=== PATIENT | female | born 1965 | race Two or more races ===

== ENCOUNTER 2017-06-26 10:29 | Emergency (ER) | payer OTHER, MEDICAID ==
[~2017-06-26] VITALS: Ht 172.7 cm; Wt 59.0 kg
[~2017-06-26 10:29] MED LIST: CLINDAMYCIN HC300 MG ORAL; IBUPROFEN600 MG ORAL
[2017-06-26 10:56] VITALS: BP 119/72
--- NOTE | 2017-06-26 10:56 | Emergency Room Report ---
History of Present Illness General Chief Complaint: General Complaint Source: Patient Present Illness HPI Patient presents for removal of a right-sided chest wall strain Patient had breast implant removal on June 16 By specialty plastic surgeon Patient reports that she's not able to see her surgeon to Wednesday She felt that the area was uncomfortable, it was not allowing her to sleep She denies any swelling denies any discharge And presents with request of removal of the drain Allergies: Coded Allergies: No Known Allergies (Unverified , 11/28/15) Patient History Past Medical History: see triage record Pertinent Family History: none Last Menstrual Period: 2012 Reviewed Nursing Documentation: PMH: Agreed, PSxH: Agreed Nursing Documentation-PMH Past Medical History: No History, Except For Hx Cardiac Problems: No - Breast surgery Hx Hypertension: No Hx Pacemaker: No Hx Asthma: No Hx COPD: No Hx Diabetes: No Hx Cancer: No Hx Gastrointestinal Problems: No Hx Dialysis: No History Of Psychiatric Problem: No Hx Neurological Problems: No Hx Cerebrovascular Accident: No Hx Seizures: No Review of Systems All Other Systems: negative except mentioned in HPI Physical Exam Vital Signs Date Time Temp Pulse Resp B/P (MAP) Pulse Ox O2 Delivery O2 Flow Rate FiO2 06/26/17 10:35 97.9 68 16 167/93 100 Room Air Sp02 EP Interpretation: reviewed, normal General Appearance: well appearing, no apparent distress Head: normocephalic, atraumatic Eyes: bilateral eye PERRL, bilateral eye EOMI Musculoskeletal: normal inspection Neurologic: normal inspection, alert, oriented x3 Skin: other - Drain in place in the right side, just below the breast fold, the area appears to be sutured in, no obvious erythema or fluctuance, no obvious dehiscence Lymphatic: no adenopathy Medical Decision Making Diagnostic Impression: Primary Impression: wound check ER Course drain appears to be in place no obvious excoriation or erythema Unfortunately at this time I did not feel that there is any emergency pathology requiring removal of this apparatus This was placed by specialty plastic surgery And I feel the best option is to followup appropriately I discussed with the patient at usually most specialties to have someone associate consulting engineer for them and discussion with her specialist would be advised Last Vital Signs Date Time Temp Pulse Resp B/P (MAP) Pulse Ox O2 Delivery O2 Flow Rate FiO2 06/26/17 10:35 97.9 68 16 167/93 100 Room Air Status: unchanged Disposition: HOME, SELF-CARE Condition: Stable Patient Instructions: Wound Check Additional Instructions: Unfortunately at this time there is no obvious emergent pathology requiring removal of this drain. The emergency room recommends followup with your specialty surgeon for further investigation and possible earlier removal. SABINE WATERS D.O. Jun 26, 2017 10:55
== END 2017-06-26 10:56 | disposition home or self-care (01) ==
LOC: EMR 10:47
DX: Z48.03 Encounter for change or removal of drains (principal)
CPT/HCPCS: 99282

== ENCOUNTER 2018-03-07 10:20 | Emergency (ER) | payer MEDICAID, OTHER ==
[~2018-03-07] VITALS: Ht 172.7 cm; Wt 61.2 kg
[2018-03-07] MEDS ORDERED: NKM (10:37)
[2018-03-07 10:42] VITALS: BP 108/67
[2018-03-07 10:56] LABS: APPEARANCE,URINE CLEAR; BILIRUBIN, URINE NEGATIVE (NEGATIVE); COLOR,URINE PALE YELLOW; GLUCOSE, URINE (UA) NEGATIVE (NEGATIVE); KETONES,URINE NEGATIVE (NEGATIVE); LEUKOCYTE ESTERASE ,URINE NEGATIVE (NEGATIVE); NITRITE,URINE NEGATIVE (NEGATIVE); PH,URINE 6 (4.5-8.0); PROTEIN,URINE NEGATIVE (NEGATIVE); UROBILINOGEN,URINE NORMAL MG/DL (0.0-1.0)
--- NOTE | 2018-03-07 11:46 | Emergency Room Report ---
History of Present Illness General Chief Complaint: Back Pain-No Injury Source: Patient, Medical Record Present Illness HPI This patient states that for the past month she has had some pain in her left low back. She states that she is also noted intermittent pain in her left groin. She states that this pain has occurred intermittently. She states the pain is worse when she wakes up in the morning and then she goes about her day it resolves or improves it. She states that she had planned on getting a massage today and felt that she should get it checked. She denies injury or trauma. 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 She denies dysuria or hematuria. She denies fever or chills. She denies abnormal vaginal discharge. She denies weakness. She denies tingling or numbness. She has no other complaints. Allergies: Coded Allergies: No Known Allergies (Unverified , 11/28/15) Patient History Past Medical History: none, see triage record Past Surgical History: other - Breast surgery Social History: Denies: smoking, alcohol use, drug use Last Menstrual Period: menopause Reviewed Nursing Documentation: PMH: Agreed; PSxH: Agreed Nursing Documentation-PMH Past Medical History: No History, Except For Hx Cardiac Problems: No - Breast surgery Hx Hypertension: No Hx Pacemaker: No Hx Asthma: No Hx COPD: No Hx Diabetes: No Hx Cancer: No Hx Gastrointestinal Problems: No Hx Dialysis: No Hx Neurological Problems: No Hx Cerebrovascular Accident: No Hx Seizures: No Review of Systems All Other Systems: negative except mentioned in HPI Physical Exam Vital Signs Date Time Temp Pulse Resp B/P (MAP) Pulse Ox O2 Delivery O2 Flow Rate FiO2 03/07/18 10:33 98.0 66 18 103/67 99 Room Air 98.1 Sp02 EP Interpretation: reviewed, normal General Appearance: no apparent distress, alert, GCS 15, non-toxic Head: normocephalic, atraumatic Eyes: bilateral eye normal inspection, bilateral eye PERRL ENT: hearing grossly normal, normal pharynx, no angioedema, normal voice Neck: full range of motion, supple/symm/no masses Respiratory: no respiratory distress, no retraction, no accessory muscle use, speaking full sentences Gastrointestinal: normal bowel sounds, non tender, soft, non-distended, no guarding, no rebound Rectal: deferred Musculoskeletal: back normal, gait/station normal, normal range of motion, non- tender Neurologic: alert, oriented x3, responsive, motor strength/tone normal, sensory intact, speech normal Psychiatric: judgement/insight normal, memory normal, mood/affect normal, no suicidal/homicidal ideation Skin: normal color, no rash, warm/dry, well hydrated Lymphatic: no adenopathy Medical Decision Making Diagnostic Impression: Primary Impression: Low back pain Additional Impression: Groin pain ER Course This patient has a clinical presentation consistent with muscle strain/Hip strain and MSK LBP. There are no red flags on physical exam or history that would make me concerned for underlying fracture. Therefore, I do not feel that I need to obtain imaging studies. There is no evidence of compartment syndrome. There is no neurologic deficit. The patient was instructed on supportive home measures. No emergency medical condition was identified. The patient was given return precautions and followup instructions. Laboratory Tests Test 03/07/18 10:40 Urine Color Pale yellow Urine Appearance Clear Urine pH 6 (4.5-8.0) Urine Specific [place] 1.015 (1.005-1.035) Urine Protein Negative (NEGATIVE) Urine Glucose (UA) Negative (NEGATIVE) Urine Ketones Negative (NEGATIVE) Urine Occult Blood 1+ (NEGATIVE) H Urine Nitrite Negative (NEGATIVE) Urine Bilirubin Negative (NEGATIVE) Urine Urobilinogen Normal MG/DL (0.0-1.0) Urine Leukocyte Esterase Negative (NEGATIVE) Urine RBC 0-2 /HPF (0 - 2) Urine WBC 0-2 /HPF (0 - 2) Urine Squamous Epithelial Cells Occasional /LPF Urine Bacteria Few /HPF (NONE) Last Vital Signs Date Time Temp Pulse Resp B/P (MAP) Pulse Ox O2 Delivery O2 Flow Rate FiO2 03/07/18 10:42 98.1 78 18 108/67 99 Room Air 98.1 Disposition: HOME, SELF-CARE Condition: Improved Referrals: [facility],REFERRING (PCP) Patient Instructions: Back Pain, Adult Ellen Mccarthy DO Mar 07, 2018 11:46
[2018-03-07] MEDS ORDERED: LIDODERM700 M1 TOPIC (11:47)
[2018-03-07 11:51] VITALS: BP 108/67
== END 2018-03-07 11:53 | disposition home or self-care (01) ==
LOC: EMR 10:56
DX: M54.5 Low back pain (principal); R10.30 Lower abdominal pain, unspecified
CPT/HCPCS: 81003; 99283